=== PATIENT | male | born 1960 | race Caucasian/White ===

== ENCOUNTER 2019-06-17 09:29 | Observation (INO) ==
[2019-06-17] MEDS ORDERED: ASPIRIN 81 MG CHEW PO STA (09:47)
[2019-06-17 10:05] LABS: Basophils # (auto) 0.02 K/uL (0-0.2); Basophils % (auto) 0.4 %; Eosinophils # (auto) 0.03 K/uL (0-0.5); Eosinophils % (auto) 0.7 %; Hematocrit (blood only) 40.5 % (42-52); Hemoglobin 13.7 g/dL (14.0-18.0); Immature Granulocytes # (auto) 0.01 K/uL (0.00-0.02); Immature Granulocytes % (auto) 0.2 %; Lymphocytes # (auto) 1.17 K/uL (1.2-3.4); Lymphocytes % (auto) 25.9 %; Mean Corpuscular Hemoglobin 29.4 pg (25-34); Mean Corpuscular Hgb Conc 33.8 g/dL (32-36); Mean Corpuscular Volume 86.9 fL (80-100); Mean Platelet Volume 9.6 fL (7.4-10.4); Monocytes # (auto) 0.94 K/uL (0.11-0.59); Monocytes % (auto) 20.8 %; Neutrophils # (auto) 2.34 K/uL (1.4-6.5); Platelet Count 200 K/uL (130-400); RDW Coefficient of Variation 13.5 % (11.5-14.5); Red Blood Count 4.66 M/uL (4.7-6.1); White Blood Count 4.51 K/uL (4.8-10.8)
[2019-06-17] MEDS ORDERED: SODIUM CHLORIDE 0.9% 1000ML 1,000 ML IV ONE (10:05)
[2019-06-17] MEDS ORDERED: ONDANSETRON INJ 2 MG/ML 2 ML VIAL IV STA (10:05)
--- NOTE | 2019-06-17 10:05 | XRay Report ---
XR chest 1V portable HISTORY: 59 years-old Male Chest Pain acute atypical chest pain COMPARISON: None available TECHNIQUE: Portable AP view of the chest FINDINGS: Cardiac silhouette is enlarged, unchanged. Minimal bibasilar opacities suggest atelectasis. No pneumo thorax, pleural effusion or overt pulmonary edema. Mild right hemidiaphragmatic elevation. Degenerati ve changes of the shoulders and spine. IMPRESSION: Cardiomegaly without acute process. The above report was generated using voice recognition software. It may contain grammatical, syntax o r spelling errors. Electronically signed by: Sheldon Garcia M.D. 06/17/2019 10:03 AM
[2019-06-17 10:20] LABS: Alanine Aminotransferase 27 U/L (12-78); Albumin Level 3.6 gm/dl (3.4-5.0); Aspartate Aminotransferase 21 U/L (15-37); BUN Creatinine Ratio 13.6 (10-20); Blood Urea Nitrogen 15 mg/dl (7-18); Calcium 8.4 mg/dl (8.5-10.1); Carbon Dioxide 23 mmol/L (21-32); Chloride 108 mmol/L (98-107); Creatinine Clr Calc Pharmacy 98.1 ml/min; Est GFR (African American) 87.8; Est GFR (Non-African American) 75.8; Glucose 115 mg/dl (70-99); Lipase 109 U/L (73-393); Potassium 3.4 mmol/L (3.5-5.1); Sodium 136 mmol/L (136-145)
[2019-06-17 10:25] LABS: Alkaline Phosphatase 94 U/L (45-117); Bilirubin,Total 0.6 mg/dl (0.2-1); Globulin 3.7 gm/dl (2.5-4.0); Total Protein 7.3 gm/dl (6.4-8.2); Troponin I < 0.015 ng/ml (0-0.045)
[2019-06-17] MEDS ORDERED: OPTIRAY 320 125ml IV PRN (10:54)
--- NOTE | 2019-06-17 11:10 | CT Scan Report ---
CT angio chest PE protocol CLINICAL HISTORY: 59 years-old Male presenting with atypical chest pain, left-sided neck pain, clinic al concern for pulmonary embolus. TECHNIQUE: Multidetector CT angiography of the chest was performed after administration of intravenou s contrast. 3-D volumetric and/or maximum intensity projection (MIP) images were subsequently reconst ructed for review. IV contrast: 120 mL of Optiray 320. One or more dose lowering techniques were used consistent with the principles of ALARA (as low as reasonably achievable), including automatic expos ure control, mA or kV adjustment to individual patient size, and/or use of iterative reconstruction. COMPARISON: Chest x-ray performed earlier the same day. CT DOSE (mGy.cm): The estimated cumulative dose is 553.72 mGy.cm. FINDINGS: Castings Drafter topogram: Unremarkable. Pulmonary vasculature: The study is suboptimal for the assessment of the pulmonary vascular tree secondary to respiratory mo tion artifact. No filling defect within the pulmonary arteries to suggest embolus. Main pulmonary art jammie is not enlarged. No flattening of the interventricular septum. No intracardiac filling defect. No reflux of contrast into the hepatic veins. Remaining chest: Soft tissues: Normal thyroid and thoracic inlet. Gynecomastia. No axillary, supraclavicular, mediasti nal, or hilar lymphadenopathy. Normal aorta. Multichamber enlargement of the heart. No pericardial or pleural effusion. Upper abdomen normal. Lungs and airways: No pneumothorax. Central airways patent. Pulmonary arteries are not significantly enlarged relative to adjacent bronchi. No interlobular septal thickening. Minimal dependent changes l ikely atelectasis. Musculoskeletal: Degenerative changes of the spine. IMPRESSION: 1. No evidence of pulmonary embolus. No acute intrathoracic pathology. 2. Cardiomegaly. No evidence of volume overload or congestive change. Electronically signed by: Ian Whitaker M.D. 06/17/2019 11:09 AM
[2019-06-17] MEDS ORDERED: DiphenhydrAMINE HCL 50 MG/ML VIAL IV STA (11:28)
[2019-06-17] MEDS ORDERED: METOCLOPRAMIDE HCL INJ 5 MG/ML 2 ML VIAL IV ONE (11:28)
[2019-06-17] MEDS ORDERED: POTASSIUM CHLORIDE 20 MEQ TABCR PO STA (12:49)
[2019-06-17 13:04] LABS: Lyme Ab IgG w/WB Rflx Negative (Negative)
[2019-06-17 13:05] LABS: Lyme Ab IgM w/WB Rflx Negative (Negative)
--- NOTE | 2019-06-17 13:06 | History & Physical Report ---
Date of Service June 17, 2019 Assessment & Plan (1) Viral syndrome: (2) Weakness: This is a 59-year-old male who has significant past medical history of HTN, HLD, depression with anxiety, osteoarthritis who presents to ED secondary to URI symptoms x4 days, overall ill feeling and left-sided chest pain. In ED initial EKG revealed normal sinus rhythm, no ST or T wave changes. Initial troponin WNL. CBC relatively unremarkable except for mildly diminished H&H 13.7 and 40.5, WBC 4.51, platelet 200, monocytes high at 0.94. elevated ESR 29/CRP0.80, K 3.4; otherwise CMP relatively unremarkable. CXR and CTA Chest negative for PE, consolidation, congestive changes, + cardiomegaly. He received ASA 325 while in ED along with IV reglan and benadryl due to nausea. admit to PCU influenza PCR pending supportive care with xopenex neb tx, incentive spirometry, tessalon perles prn once ACS ruled out can implement NSAIDS (3) Chest pain: ? if 2/2 to viral syndrome, pleuritis, chostochondritis vs ACS pt with hx of HTN, HLD initial trop negative, ECG no ST t wave changes trend trop x 2, repeat ecg echo (4) Hypokalemia: K 3.4 replete repeat in a.m. (5) HTN (hypertension): BP controlled, continue lisnopril monitor (6) HLD (hyperlipidemia): continue statin fasting lipid panel in a.m. (7) Depression: continue escitalopram (8) DVT prophylaxis: SCD/TEDS FULL CODE Disposition: admit to PCU under observation, pending further work up [facility] Pt was seen and examined in collaboration with Dr. Dumont, please see addendum History of Present Illness Chief Complaint: URI sx x 4 days; L sided chest pain Primary Care Provider: Dr. Savage - Family medicine [facility] This is a 59-year-old male who has significant past medical history of HTN, HLD, depression with anxiety, osteoarthritis who presents to ED secondary to URI symptoms x4 days, overall ill feeling and left-sided chest pain. He is from [place], [place] and is up in the area for work. is at bedside. On Saturday he developed URI-like symptoms including sinus congestion, cough, ill feeling. Symptoms progressed to shortness breath with exertion, wheezing, chills, sweats, left-sided chest pain that radiates left neck. Yesterday when working he had to walk up a hill had to stop 3 times secondary to feeling short of breath. He has never felt like this in the past, except when diagnosed with pneumonia approximately 1 year ago. Cough is productive with purulent sputum, chest pain worse with coughing and deep breathing. "I have to hold my chest when I cough because it hurts." He denies documented fever, lightheadedness, shortness breath at rest, hemoptysis, emesis, abdominal pain, diarrhea, dysuria, increased urgency frequency with urination, melena, hematochezia. Patient came by EMS and did receive nebulizer treatment and ambulance. This made him feel very nauseous. at bedside states daughter has been dealing with GI virus that also had dizziness. No other sick contacts. He did not get his flu vaccine. Denies prior hx of CAD or FH of CAD. Prior to URI illness he denies having SOB with exertion or chest pain. Chest pain is constant, waxes and wanes in severity, worse with deep breathing and exertion, radiates to L neck, has been using OTC clarinex for, "skin issue," but hasn't been working. Appetite poor past 2-3 days. In ED initial EKG revealed normal sinus rhythm, no ST or T wave changes. Initial troponin WNL. CBC relatively unremarkable except for mildly diminished H&H 13.7 and 40.5, WBC 4.51, platelet 200, monocytes high at 0.94. elevated ESR 29/CRP0.80, K 3.4; otherwise CMP relatively unremarkable. CXR and CTA Chest negative for PE, consolidation, congestive changes, + cardiomegaly. He received ASA 325 while in ED along with IV reglan and benadryl due to nausea. Allergies Allergy/AdvReac Type Severity Reaction Status Date / Time No Known Allergies Allergy Unverified 06/17/19 10:28 Home Medications Home Medications Medication Instructions Recorded Confirmed Type atorvastatin 10 mg PO DAILY 06/17/19 06/17/19 History escitalopram oxalate [Lexapro] 20 mg PO DAILY 06/17/19 06/17/19 History lisinopril 10 mg PO DAILY 06/17/19 06/17/19 History loratadine-pseudoephedrine 1 tab PO Q12H 06/17/19 06/17/19 History [Claritin-D 12 Hour] meloxicam 15 mg PO DAILY 06/17/19 06/17/19 History Past Med/Surg History Medical History HLD (hyperlipidemia) HTN (hypertension) Surgical History History of shoulder surgery R shoulder Family History Other Hypertension No significant family history Social History (Updated 06/17/19 @ 12:54 by Mayda Benjamin PA-C) Preferred Language: [place] Communication Ability: Effective 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 Beliefs That Will Affect Care: None Current Living Situation: Spouse current occupational status: employed Other Information That Helps Us Care for You: No Feels Safe at Home: Yes Safety Concerns: Feels Safe At This Time Smoking Status: Never smoker Hx Alcohol Use: Yes Alcohol type: beer Alcohol Intake Frequency: Rarely Hx Substance Use: No Review of Systems Review of Systems: All systems reviewed & are unremarkable except as noted in HPI & below Physical Exam Physical Exam: Constitutional: Ill appearing, Male, ashen color, vitals as above, NAD, sitting up in bed, answers questions approp, flat affect, Head: Normocephalic, Atraumatic Eyes: PERRL, conjunctivae normal, anicteric sclerae ENMT: external ear and nose normal, oropharynx normal Neck: trachea midline, no thyromegaly normal visual inspection Respiratory: normal respiratory effort, lungs clear to auscultation, with expiratory wheeze b/l no rales, rhonchi. Normal insp/exp effort, no accessory muscle use saturing well on room air, L sided chest pain with deep inhalation Cardiovascular: RRR, no murmur, no edema Vessels: no JVD or carotid bruit Chest: normal inspection of chest Abdomen: normal bowel sounds, soft, nontender, no hepatosplenomegaly Musculoskeletal: no cyanosis or clubbing, extremities motor strength 5/5 Skin: no rashes, warm and dry normal turgor Neurologic: PERRL, EOMI, accommodation nl, no face palsy, no dysarthria CN's II-XI intact bilaterally and moves all extremities Psychiatric: A+Ox3, euthymic affect Lymphatic: no cervical or axillary lymphadenopathy : deferred Results & Data Vital Signs (Past 12 Hours) Vital Signs Temp Pulse Pulse Resp BP BP Pulse Ox 06/17/19 12:00 56 L 20 140/90 100 06/17/19 11:00 100 06/17/19 10:12 60 16 129/89 97 06/17/19 09:38 36.5 C 69 16 151/98 H 97 Laboratory Results Short CBC 06/17/19 06/17/19 Range/Units 09:53 09:53 WBC 4.51 L (4.8-10.8) K/uL Hgb 13.7 L (14.0-18.0) g/dL Hct 40.5 L (42-52) % Plt Count 200 (130-400) K/uL Creatinine 1.08 (0.6-1.4) mg/dl BMP 06/17/19 09:53 Sodium 136 Potassium 3.4 L Chloride 108 H Carbon Dioxide 23 BUN 15 Creatinine 1.08 Glucose 115 H Calcium 8.4 L Cardiac Enzymes 06/17/19 Range/Units 09:53 Troponin I < 0.015 (0-0.045) ng/ml Liver Function 06/17/19 Range/Units 09:53 Total Bilirubin 0.6 (0.2-1) mg/dl AST 21 (15-37) U/L ALT 27 (12-78) U/L Alkaline Phosphatase 94 (45-117) U/L Albumin 3.6 (3.4-5.0) gm/dl Diagnostic Findings CXR: IMPRESSION: Cardiomegaly without acute process. Chest CTA: IMPRESSION: 1. No evidence of pulmonary embolus. No acute intrathoracic pathology. 2. Cardiomegaly. No evidence of volume overload or congestive change. Medications Administered Ioversol (Optiray 320 125ml) 120 ml IV ONCE PRN PRN Reason: Interaction Checking Stop: 06/21/19 10:53 Last Admin: 06/17/19 10:54 Dose: 120 ml Documented by: [id number] Discontinued Medications Aspirin (Aspirin Chew) 324 mg PO NOW STA Stop: 06/17/19 09:48 Last Admin: 06/17/19 09:52 Dose: 324 mg Documented by: [id number] Diphenhydramine HCl (Benadryl) 25 mg IV NOW STA Stop: 06/17/19 11:29 Last Admin: 06/17/19 12:00 Dose: 25 mg Documented by: [id number] Sodium Chloride (Nss 1000ml) 1,000 mls @ 999 mls/hr IV .Q1H1M ONE Stop: 06/17/19 11:05 Last Infusion: 06/17/19 11:15 Dose: 0 mls/hr Documented by: [id number] Admin: 06/17/19 10:13 Dose: 999 mls/hr Documented by: [id number] Metoclopramide HCl (Reglan) 5 mg IV ONE ONE Stop: 06/17/19 11:29 Last Admin: 06/17/19 12:03 Dose: 5 mg Documented by: [id number] Ondansetron HCl (Zofran) 4 mg IV NOW STA Stop: 06/17/19 10:06 Last Admin: 06/17/19 10:13 Dose: 4 mg Documented by: [id number] ECG Rate (beats per minute): 65 Rhythm: normal sinus Code Status & VTE Plan Code Status Full Code VTE Prophylaxis Plan VTE Prophylaxis will be ordered: Yes Supervising Physician Co-Signing Physician Notes I have seen and examined the patient and have discussed the case with the provider above. I agree with the assessment and plan as stated with the following exceptions. 59 yo M with acute chest pain in the setting of a respiratory illness for the past few days. Although symptoms began with cough and congestion, he then developed pleurisy in addition to a constant chest pain on the left anterior chest wall with radiation to the neck while at rest. There were no triggers for the chest pain except when he became nauseous in response to the neb treatment today and vomited. After some antiemetics in the ER, he states the pain calmed down and he is feeling better--but the chest pain is still there. 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 He does report a h/o costochondritis in the past, and used Ibuprofen. He took some of this over the weekend, also without improvement. The chest wall is not tender to palpation. His vitals are normal, and he appears less pale than described in the ER. He is mentating normally. Heart exam reveals a normal S1/2 without murmurs, he had no pedal edema and appears euvolemic. His lungs were initially wheezy until he coughed a couple of times and then he was moving air well and there were no adventitial sounds present. He has clear fluid in his R middle ear and the left ear is clear. There is no retraction of tympanic membranes. Oropharynx is normal, no head/neck LAD, no sinus TTP. Overall this appears to be chest pain consistent with pleurisy, costochondritis or musculoskeletal chest pain. Agree with NSAIDs. Echo in setting of ongoing chest pain despite normal troponin. At the time of this writing two troponin enzymes were negative and EKG was without evidence of acute ischemia. Ongoing pain should be treated with supportive care. Consult cardiology with risk factors for CAD. DO Tim (1) Chest pain Chest pain type: unspecified Qualified Code(s): R07.9 - Chest pain, unspecified
[2019-06-17] MEDS ORDERED: ONDANSETRON INJ 2 MG/ML 2 ML VIAL IV PRN (14:06)
[2019-06-17] MEDS ORDERED: BENZONATATE 100 MG CAPSULE PO PRN (14:06)
[2019-06-17] MEDS ORDERED: MAGNESIUM HYDROXIDE SUSP 30 ML UDC PO PRN (14:06)
[2019-06-17] MEDS ORDERED: ACETAMINOPHEN 325 MG TAB PO PRN (14:06)
[2019-06-17] MEDS ORDERED: SODIUM CHLORIDE 0.9% 1000ML 1,000 ML IV SCH (14:06)
[2019-06-17] MEDS ORDERED: POLYETHYLENE (MIRALAX) 17 GM PACK PO PRN (14:06)
[2019-06-17] MEDS ORDERED: ALUMINUM/MAGNESIUM SUSP 30 ML UDC PO PRN (14:06)
[2019-06-17] MEDS ORDERED: LEVALBUTEROL HCL 0.63 MG/3 ML NEB NEB SCH (14:06)
[2019-06-17] MEDS ORDERED: LEVALBUTEROL HCL 0.63 MG/3 ML NEB NEB PRN (14:39)
[2019-06-17 15:23] LABS: Influenza A virus by PCR Neg for Influ A (Neg); Influenza B virus by PCR Neg for Influ B (Neg)
--- NOTE | 2019-06-17 15:47 | Emergency Department Note ---
Entered by Lucia Garnett acting as a scribe for History of Present Illness General Chief complaint: Illness Stated complaint: chest pain Time Seen by Provider: 06/17/19 09:33 Source: patient History of Present Illness Onset (ago): minute(s) (prior to arrival) Location: chest Severity: similar to prior episodes (pneumonia) Pain Consistency: + other (episode) Maximum Pain Intensity: 6 Current Pain Intensity: 6 Quality: + other (illness) Relieved By: + medication (Albuterol) Associated symptoms: + denies other symptoms (leg swelling), + chest pain, + cough (productive), + headaches, + nausea/vomiting, + shortness of breath and + other (neck pain, numbness) The patient is a 59 year old male who presents to the Emergency Room with complaints of an episode of an illness starting prior to arrival. 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 He states that he suddenly started to become short of breath. He reports that he started then having chest pain with breathing in and it radiated up into his neck. He states that he then became dizzy and had blurred vision. He reports that he called 911. He states that while waiting he started to get a hea dache, numbness behind his ears, numbness around his lips, numbness in his hands, and numbness in his feet. The patient states that when EMS arrived, they gave him an Albuterol treatment. He reports that this helped his breathing, but it made him nauseous and vomit. The patient notes that his chest pain is gone, but he still has the left sided neck pain. He currently rates his pain as a 6/10 in severity. The patient states that this feels similar to when he had pneumonia 2 months ago, but notes that he never had neck pain with it. The patient complains of a productive cough. The patient denies leg swelling, a family history of cardiac issues, a cardiac history, and being a smoker. Home Medications Home Medications Medication Instructions Recorded Confirmed Type atorvastatin 10 mg PO DAILY 06/17/19 06/17/19 History escitalopram oxalate [Lexapro] 20 mg PO DAILY 06/17/19 06/17/19 History lisinopril 10 mg PO DAILY 06/17/19 06/17/19 History loratadine-pseudoephedrine 1 tab PO Q12H 06/17/19 06/17/19 History [Claritin-D 12 Hour] meloxicam 15 mg PO DAILY 06/17/19 06/17/19 History Allergies Allergy/AdvReac Type Severity Reaction Status Date / Time No Known Allergies Allergy Unverified 06/17/19 10:28 Past Med/Surg History Medical History HLD (hyperlipidemia) HTN (hypertension) Surgical History History of shoulder surgery R shoulder Family History Other Hypertension No significant family history Social History (Updated 06/17/19 @ 12:54 by Mayda Benjamin PA-C) Preferred Language: Hebrew Communication Ability: Effective Type Mapper Required: No Beliefs That Will Affect Care: None Current Living Situation: Spouse current occupational status: employed Other Information That Helps Us Care for You: No Feels Safe at Home: Yes Safety Concerns: Feels Safe At This Time Smoking Status: Never smoker Hx Alcohol Use: Yes Alcohol type: beer Alcohol Intake Frequency: Rarely Hx Substance Use: No Review of Systems See HPI for pertinent positives & negatives. and A total of 10 systems reviewed and were otherwise negative Physical Exam Vital Signs Vital Signs - 24 hr 06/17/19 09:38 06/17/19 10:12 06/17/19 11:00 Temperature 36.5 C Temperature Source Oral Pulse Rate 69 Pulse Rate [Apical] 60 Pulse Rhythm [Apical] Respiratory Rate 16 16 Respiratory Effort / Characteristics Respiratory Depth Blood Pressure 151/98 H Blood Pressure [Right Arm] 129/89 Blood Pressure Mean 115 Blood Pressure Mean [Right Arm] 102 Blood Pressure Position [Right Arm] Pulse Oximetry 97 97 100 Oxygen Delivery Method Room Air Room Air Room Air Sepsis Recent Fever Within 48 Hours No Sepsis Action Taken by Nursing No Action Required 06/17/19 12:00 Temperature Temperature Source Pulse Rate Pulse Rate [Apical] 56 L Pulse Rhythm [Apical] Regular Respiratory Rate 20 Respiratory Effort / Characteristics Non-Labored Spontaneous Respiratory Depth Normal Blood Pressure Blood Pressure [Right Arm] 140/90 Blood Pressure Mean Blood Pressure Mean [Right Arm] 106 Blood Pressure Position [Right Arm] Lying Pulse Oximetry 100 Oxygen Delivery Method Room Air Sepsis Recent Fever Within 48 Hours Sepsis Action Taken by Nursing GENERAL: Awake, alert, uncomfortable appearing, in no distress HENT: Normocephalic, atraumatic. EYES: Normal conjunctiva. Sclera non-icteric. NECK: Supple. No nuchal rigidity. Slightly reproducible left lower neck tender ness. No masses. RESPIRATORY: Clear to auscultation. No wheezes. Normal respiratory effort. CARDIAC: Normal rate. Normal rhythm. Extremities warm and well perfused. GI: Soft, non-distended. No tenderness to palpation. No rebound or guarding. No masses. RECTAL: Deferred. MUSCULOSKELETAL: Atraumatic. Chest examination reveals no tenderness. LOWER EXTREMITIES: Calves are equal size bilaterally and non-tender. No edema NEURO: Normal sensorium. No sensory or motor deficits noted. No facial droop. SKIN: Warm and dry. No rash or jaundice noted. Course Course 0938: The patient was evaluated in room A3. A complete history and physical exam was performed. 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 1120: I reevaluated the patient and updated him on his test results at this time. I discussed the treatment plan with him. He verbally agrees and understands. 1134: I discussed the patient's case with Brianna Ho PA-C - [facility] Hospitalist. She will evaluate the patient for further management under Dr. Dumont's service. Administered Medications Discontinued Medications Aspirin (Aspirin Chew) 324 mg PO NOW STA Stop: 06/17/19 09:48 Last Admin: 06/17/19 09:52 Dose: 324 mg Documented by: [id number] Diphenhydramine HCl (Benadryl) 25 mg IV NOW STA Stop: 06/17/19 11:29 Last Admin: 06/17/19 12:00 Dose: 25 mg Documented by: [id number] Sodium Chloride (Nss 1000ml) 1,000 mls @ 999 mls/hr IV .Q1H1M ONE Stop: 06/17/19 11:05 Last Infusion: 06/17/19 11:15 Dose: 0 mls/hr Documented by: [id number] Admin: 06/17/19 10:13 Dose: 999 mls/hr Documented by: [id number] Ioversol (Optiray 320 125ml) 120 ml IV ONCE PRN PRN Reason: Interaction Checking Stop: 06/21/19 10:53 Last Admin: 06/17/19 10:54 Dose: 120 ml Documented by: [id number] Levalbuterol HCl (Xopenex 0.63 Mg/3 Ml Neb) 0.63 mg NEB Q6R SASHA Stop: 07/17/19 14:05 Last Admin: 06/17/19 15:23 Dose: Not Given Documented by: [id number] Metoclopramide HCl (Reglan) 5 mg IV ONE ONE Stop: 06/17/19 11:29 Last Admin: 06/17/19 12:03 Dose: 5 mg Documented by: [id number] Ondansetron HCl (Zofran) 4 mg IV NOW STA Stop: 06/17/19 10:06 Last Admin: 06/17/19 10:13 Dose: 4 mg Documented by: [id number] Potassium Chloride (Klor-Con M20) 40 meq PO NOW STA Stop: 06/17/19 12:50 Last Admin: 06/17/19 13:18 Dose: 40 meq Documented by: [id number] Medical Decision Making Differential Diagnosis Differential diagnoses includes but is not limited to acute coronary syndrome, myocardial infarction, pericarditis, pulmonary embolus, aortic dissection, pneumonia, pneumothorax, musculoskeletal, shingles, esophageal. Medical Records Attestation: I reviewed the patient's medical records. Home Medications Current Medication List: was personally reviewed by me Laboratory Data Attestation: I reviewed the patient's lab results. Result diagrams: 06/17/19 09:53 06/17/19 09:53 Lab Results 06/17/19 06/17/19 06/17/19 Range/Units 09:53 09:53 09:53 WBC 4.51 L (4.8-10.8) K/uL RBC 4.66 L (4.7-6.1) M/uL Hgb 13.7 L (14.0-18.0) g/dL Hct 40.5 L (42-52) % MCV 86.9 (80-100) fL MCH 29.4 (25-34) pg MCHC 33.8 (32-36) g/dL RDW Std Deviation 43.0 (36.4-46.3) fL RDW Coeff of Anthony 13.5 (11.5-14.5) % Plt Count 200 (130-400) K/uL MPV 9.6 (7.4-10.4) fL Immature Gran % (Auto) 0.2 % Neut % (Auto) 52.0 % Lymph % (Auto) 25.9 % [place] % (Auto) 20.8 % Eos % (Auto) 0.7 % Baso % (Auto) 0.4 % Immature Gran # (Auto) 0.01 (0.00-0.02) K/uL Neut # (Auto) 2.34 (1.4-6.5) K/uL Lymph # (Auto) 1.17 L (1.2-3.4) K/uL [place] # (Auto) 0.94 H (0.11-0.59) K/uL Eos # (Auto) 0.03 (0-0.5) K/uL Baso # (Auto) 0.02 (0-0.2) K/uL ESR 29 H (0-14) mm/hr Sodium 136 (136-145) mmol/L Potassium 3.4 L (3.5-5.1) mmol/L Chloride 108 H (98-107) mmol/L Carbon Dioxide 23 (21-32) mmol/L Anion Gap 5.0 (3-11) BUN 15 (7-18) mg/dl Creatinine 1.08 (0.6-1.4) mg/dl Est Cr Clr Drug Dosing 98.1 ml/min Est GFR ( Amer) 87.8 Est GFR (Non-Af Amer) 75.8 BUN/Creatinine Ratio 13.6 (10-20) Glucose 115 H (70-99) mg/dl Calcium 8.4 L (8.5-10.1) mg/dl Total Bilirubin 0.6 (0.2-1) mg/dl AST 21 (15-37) U/L ALT 27 (12-78) U/L Alkaline Phosphatase 94 (45-117) U/L Troponin I < 0.015 (0-0.045) ng/ml C-Reactive Protein (0-0.29) mg/dl Total Protein 7.3 (6.4-8.2) gm/dl Albumin 3.6 (3.4-5.0) gm/dl Globulin 3.7 (2.5-4.0) gm/dl Albumin/Globulin Ratio 1.0 (0.9-2) Lipase 109 (73-393) U/L Lyme Disease IgG Ab (Negative) Lyme Disease IgM Ab (Negative) Hepatitis C Ab Screen (Neg) Influenza Type A (PCR) (Neg) Influenza Type B (PCR) (Neg) 06/17/19 06/17/19 06/17/19 Range/Units 09:53 12:05 12:05 WBC (4.8-10.8) K/uL RBC (4.7-6.1) M/uL Hgb (14.0-18.0) g/dL Hct (42-52) % MCV (80-100) fL MCH (25-34) pg MCHC (32-36) g/dL RDW Std Deviation (36.4-46.3) fL RDW Coeff of Anthony (11.5-14.5) % Plt Count (130-400) K/uL MPV (7.4-10.4) fL Immature Gran % (Auto) % Neut % (Auto) % Lymph % (Auto) % [place] % (Auto) % Eos % (Auto) % Baso % (Auto) % Immature Gran # (Auto) (0.00-0.02) K/uL Neut # (Auto) (1.4-6.5) K/uL Lymph # (Auto) (1.2-3.4) K/uL [place] # (Auto) (0.11-0.59) K/uL Eos # (Auto) (0-0.5) K/uL Baso # (Auto) (0-0.2) K/uL ESR (0-14) mm/hr Sodium (136-145) mmol/L Potassium (3.5-5.1) mmol/L Chloride (98-107) mmol/L Carbon Dioxide (21-32) mmol/L Anion Gap (3-11) BUN (7-18) mg/dl Creatinine (0.6-1.4) mg/dl Est Cr Clr Drug Dosing ml/min Est GFR ( Amer) Est GFR (Non-Af Amer) BUN/Creatinine Ratio (10-20) Glucose (70-99) mg/dl Calcium (8.5-10.1) mg/dl Total Bilirubin (0.2-1) mg/dl AST (15-37) U/L ALT (12-78) U/L Alkaline Phosphatase (45-117) U/L Troponin I (0-0.045) ng/ml C-Reactive Protein 0.80 H (0-0.29) mg/dl Total Protein (6.4-8.2) gm/dl Albumin (3.4-5.0) gm/dl Globulin (2.5-4.0) gm/dl Albumin/Globulin Ratio (0.9-2) Lipase (73-393) U/L Lyme Disease IgG Ab Negative (Negative) Lyme Disease IgM Ab Negative (Negative) Hepatitis C Ab Screen Neg (Neg) Influenza Type A (PCR) (Neg) Influenza Type B (PCR) (Neg) 06/17/19 Range/Units 12:35 WBC (4.8-10.8) K/uL RBC (4.7-6.1) M/uL Hgb (14.0-18.0) g/dL Hct (42-52) % MCV (80-100) fL MCH (25-34) pg MCHC (32-36) g/dL RDW Std Deviation (36.4-46.3) fL RDW Coeff of Anthony (11.5-14.5) % Plt Count (130-400) K/uL MPV (7.4-10.4) fL Immature Gran % (Auto) % Neut % (Auto) % Lymph % (Auto) % [place] % (Auto) % Eos % (Auto) % Baso % (Auto) % Immature Gran # (Auto) (0.00-0.02) K/uL Neut # (Auto) (1.4-6.5) K/uL Lymph # (Auto) (1.2-3.4) K/uL [place] # (Auto) (0.11-0.59) K/uL Eos # (Auto) (0-0.5) K/uL Baso # (Auto) (0-0.2) K/uL ESR (0-14) mm/hr Sodium (136-145) mmol/L Potassium (3.5-5.1) mmol/L Chloride (98-107) mmol/L Carbon Dioxide (21-32) mmol/L Anion Gap (3-11) BUN (7-18) mg/dl Creatinine (0.6-1.4) mg/dl Est Cr Clr Drug Dosing ml/min Est GFR ( Amer) Est GFR (Non-Af Amer) BUN/Creatinine Ratio (10-20) Glucose (70-99) mg/dl Calcium (8.5-10.1) mg/dl Total Bilirubin (0.2-1) mg/dl AST (15-37) U/L ALT (12-78) U/L Alkaline Phosphatase (45-117) U/L Troponin I (0-0.045) ng/ml C-Reactive Protein (0-0.29) mg/dl Total Protein (6.4-8.2) gm/dl Albumin (3.4-5.0) gm/dl Globulin (2.5-4.0) gm/dl Albumin/Globulin Ratio (0.9-2) Lipase (73-393) U/L Lyme Disease IgG Ab (Negative) Lyme Disease IgM Ab (Negative) Hepatitis C Ab Screen (Neg) Influenza Type A (PCR) Neg for Influ A (Neg) Influenza Type B (PCR) Neg for Influ B (Neg) Imaging Data Radiologist's Impression: Radiology results as stated below per my review and the radiologist's interpretation: XR chest 1V portable HISTORY: 59 years-old Male Chest Pain acute atypical chest pain COMPARISON: None available TECHNIQUE: Portable AP view of the chest FINDINGS: Cardiac silhouette is enlarged, unchanged. Minimal bibasilar opacities suggest atelectasis. No pneumothorax, pleural effusion or overt pulmonary edema. Mild right hemidiaphragmatic elevation. Degenerative changes of the shoulders and spine. IMPRESSION: Cardiomegaly without acute process. The above report was generated using voice recognition software. It may contain grammatical, syntax or spelling errors. Electronically signed by: Sheldon Garcia M.D. 06/17/2019 10:[address] angio chest PE protocol CLINICAL HISTORY: 59 years-old Male presenting with atypical chest pain, left- sided neck pain, clinical concern for pulmonary embolus. TECHNIQUE: Multidetector CT angiography of the chest was performed after administration of intravenous contrast. 3-D volumetric and/or maximum intensity projection (MIP) images were subsequently reconstructed for review. IV contrast: 120 mL of Optiray 320. One or more dose lowering techniques were used consistent with the principles of ALARA (as low as reasonably achievable), including automatic exposure control, mA or kV adjustment to individual patient size, and/or use of iterative reconstruction. COMPARISON: Chest x-ray performed earlier the same day. CT DOSE (mGy.cm): The estimated cumulative dose is 553.72 mGy.cm. 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 Pulmonary vasculature: The study is suboptimal for the assessment of the pulmonary vascular tree secondary to respiratory motion artifact. No filling defect within the pulmonary arteries to suggest embolus. Main pulmonary artery is not enlarged. No flattening of the interventricular septum. No intracardiac filling defect. No reflux of contrast into the hepatic veins. Remaining chest: Soft tissues: Normal thyroid and thoracic inlet. Gynecomastia. No axillary, supraclavicular, mediastinal, or hilar lymphadenopathy. Normal aorta. Multichamber enlargement of the heart. No pericardial or pleural effusion. Upper abdomen normal. Lungs and airways: No pneumothorax. Central airways patent. Pulmonary arteries are not significantly enlarged relative to adjacent bronchi. No interlobular septal thickening. Minimal dependent changes likely atelectasis. Musculoskeletal: Degenerative changes of the spine. IMPRESSION: 1. No evidence of pulmonary embolus. No acute intrathoracic pathology. 2. Cardiomegaly. No evidence of volume overload or congestive change. Electronically signed by: Ian Whitaker M.D. 06/17/2019 11:09 AM ECG Data Attestation: I personally reviewed and interpreted this ECG as follows: Indication: + chest pain Rate (beats per minute): 65 Rhythm: + normal sinus ECG Intervals/blocks: + Normal QRS and + Normal QT-c ECG [place]: + Normal ECG ST segments: no ST elevation ECG Findings: no PVCs Blood Pressure Blood Pressure Findings: Elevated blood pressure Blood Pressure Disposition: Referred to patients primary care provider MDM Narrative Patient is a 59-year-old gentleman presenting via ambulance today with a complaint of chest pain. History of hypertension hyperlipidemia. States he has been feeling a little bit short of breath and on the weather for the past 2 to 3 days but this morning sparing his pain in his chest rating to his left neck. Denies abdominal symptoms. Endorses some nausea and feeling a bit dizzy as well. No trauma reported. No abdominal pain. No leg swelling. 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 Patient denies tobacco use or significant family history of cardiac disease. Denies personal cardiac history. Patient does have some slightly reproducible left lower neck pain but not the entire area of pain. Patient reports some mild discomfort across the chest right now. No immediate EKG changes are noted. CT of the chest was complete exclude dissection or PE. Chest x-ray complete without evidence of pneumonia or pneumothorax. Benign abdomen. Basic labs are sent without evidence of hepatitis or pancreatitis. Initial troponin is negative. Patient relays nausea and some dizziness. Given aspirin and fluid bolus here. No significant leukocytosis or significant anemia noted. No evidence of significant kidney dysfunction. Negative troponin. Patient does relay that he has been feeling weak and having some chills over the last several days. Does report some tick bites recently. Given the patient still feeling quite unwell did try some Benadryl and Reglan to see if this would help with his nausea. Discussed with him my recommendation that the patient further be observed here in the hospital with additional troponins as well as further evaluation of his constellation of syndromes. Lyme testing again is negative. Leukopenia could be suggestive of possible anaplasmosis as well although is not having LFT abnormalities. Will defer to the inpatient team further treatment and management. Patient was in agreemen this plan. [facility] hospitalist was contacted. Impression & Plan Chest pain, Weakness, Nausea & vomiting Discharge Plan Visit Data *Final* Discharge Date/Time: 06/17/19 13:57 Chief Complaint: Illness Stated Complaint: chest pain ED Provider: Mayank Smith Discharge Problem: Chest pain, Weakness, Nausea & vomiting Patient Disposition: Admitted As Inpatient Discharge Instructions Interventions: ED Discharge Assessment Last Done: 06/17/19 13:57 Discharge Problem: Chest pain Qualifiers: Chest pain type: unspecified Qualified Code(s): R07.9 - Chest pain, unspecified Nausea & vomiting Qualifiers: Vomiting type: unspecified Vomiting Intractability: unspecified Qualified Code(s): R11.2 - Nausea with vomiting, unspecified The scribe's documentation has been prepared under my direction and personally reviewed by me in its entirety. I confirm that the note above accurately reflects all work, treatment, procedures, and medical decision making performed by me.
[2019-06-17] MEDS ORDERED: IBUPROFEN 200 MG TAB PO PRN (17:05)
[2019-06-18 07:15] LABS: Basophils # (auto) 0.02 K/uL (0-0.2); Basophils % (auto) 0.4 %; Eosinophils # (auto) 0.12 K/uL (0-0.5); Eosinophils % (auto) 2.4 %; Hematocrit (blood only) 40.1 % (42-52); Hemoglobin 12.8 g/dL (14.0-18.0); Immature Granulocytes # (auto) 0.02 K/uL (0.00-0.02); Immature Granulocytes % (auto) 0.4 %; Lymphocytes # (auto) 1.56 K/uL (1.2-3.4); Lymphocytes % (auto) 31.5 %; Mean Corpuscular Hemoglobin 28.6 pg (25-34); Mean Corpuscular Hgb Conc 31.9 g/dL (32-36); Mean Corpuscular Volume 89.7 fL (80-100); Mean Platelet Volume 10.3 fL (7.4-10.4); Monocytes # (auto) 0.64 K/uL (0.11-0.59); Monocytes % (auto) 12.9 %; Neutrophils % (auto) 52.4 %; Platelet Count 215 K/uL (130-400); RDW Coefficient of Variation 13.8 % (11.5-14.5); RDW Standard Deviation 45.9 fL (36.4-46.3); Red Blood Count 4.47 M/uL (4.7-6.1); White Blood Count 4.96 K/uL (4.8-10.8)
[2019-06-18 07:38] LABS: Estimated Average Glucose 111 mg/dl; Hemoglobin A1C 5.5 % (4.5-5.6)
[2019-06-18 07:57] LABS: BUN Creatinine Ratio 13.6 (10-20); Calcium 8.1 mg/dl (8.5-10.1); Creatinine Clr Calc Pharmacy 90.2 ml/min; Est GFR (African American) 82.3; Potassium 4.4 mmol/L (3.5-5.1)
[2019-06-18] MEDS ORDERED: lisinopriL 10 MG TAB PO SCH (09:00)
[2019-06-18] MEDS ORDERED: ATORVASTATIN 10 MG TAB PO SCH (09:00)
[2019-06-18] MEDS ORDERED: ESCITALOPRAM OXALATE 20 MG TAB PO SCH (09:00)
--- NOTE | 2019-06-18 09:30 | Cardiology Consultation ---
Date of Consultation June 18, 2019 Assessment & Plan (1) Chest pain: Occurring in the setting of upper respiratory tract infection and cough His ischemic work-up was completely unremarkable with cardiac enzymes negative x3, no ischemic EKG changes and normal wall motion on echocardiogram. I do not believe this represents active cardiac ischemia and would recommend treatment of his underlying upper respiratory tract infection There may be an element of pleurisy to his discomfort but given the fact that it is not constant I feel this is less likely Consideration should be given to treating with NSAIDs and acetaminophen Recommend follow-up with PCP after discharge there is no need for cardiac follow-up at this time. Okay to discharge from telemetry or to home from a cardiac standpoint (2) Viral syndrome: History of Present Illness Reason for Consultation: Chest pain Requesting Physician: Dr. Dumont Attending Physician: Dayana Dumont, DO History of Present Illness It was my pleasure to see Mr. Kohler in consultation today June 18, 2019. He is a very pleasant 59-year-old gentleman who is not known to our cardiology practice. He presented to [facility] on 06/17/2019 with complaints of upper respiratory tract infection symptoms for 4 days. He states overall he is been feeling very poorly with flulike symptoms. He states he has been coughing on a regular basis and 2 days ago developed some chest discomfort as well. He describes it as a dull pressure sensation on his left side underneath his left breast. He denies any associated symptoms with the discomfort and states that seems to come and go on its own. There is no correlation with activity or movement and is worsened with coughing. His states that he had a previous similar episode of chest discomfort several years ago in a similar setting when he was dealing with a bout of pneumonia, he was diagnosed with costochondritis at that time. The patient states that this feels very similar to that episode. Allergies Allergy/AdvReac Type Severity Reaction Status Date / Time No Known Allergies Allergy Unverified 06/17/19 10:28 Home Medications Home Medications Medication Instructions Recorded Confirmed Type atorvastatin 10 mg PO DAILY 06/17/19 06/17/19 History escitalopram oxalate [Lexapro] 20 mg PO DAILY 06/17/19 06/17/19 History lisinopril 10 mg PO DAILY 06/17/19 06/17/19 History loratadine-pseudoephedrine 1 tab PO Q12H 06/17/19 06/17/19 History [Claritin-D 12 Hour] meloxicam 15 mg PO DAILY 06/17/19 06/17/19 History Patient History Medical History HLD (hyperlipidemia) HTN (hypertension) Surgical History History of shoulder surgery R shoulder Family History Other Hypertension No significant family history Social History Preferred Language: Urdu Communication Ability: Effective Human Service Specialist Required: No Beliefs That Will Affect Care: None Current Living Situation: Spouse current occupational status: employed Other Information That Helps Us Care for You: No Feels Safe at Home: Yes Safety Concerns: Feels Safe At This Time Smoking Status: Never smoker Hx Alcohol Use: Yes Alcohol type: beer Alcohol Intake Frequency: Rarely Hx Substance Use: No Review of Systems Review of Systems: All systems reviewed & are unremarkable except as noted in HPI & below Physical Exam Physical Exam: Physical Exam: General: Awake, alert and oriented x 3. No acute distress. HEENT: Normocephalic, atraumatic. Pupils equal, round and reactive to light and accommodation. Extraocular muscles are intact. Anicteric sclera. Moist mucous membranes. Neck: No JVD. No bruit. Cardiovascular: Regular. No S-4. Normal S-1 and S-2. No S-3. No murmurs, rubs or gallops. Pulmonary: Clear to auscultation bilaterally. No rales, rhonchi, or wheezing. Abdomen: Bowel sounds x 4, soft. No rebound, guarding or tenderness. No organomegaly. Extremities: No clubbing, cyanosis or edema. +2 pedal pulses bilaterally. Skin: Warm and dry. Results & Data Vital Signs (Past 12 Hours) Vital Signs Temp Pulse Pulse Pulse Resp BP BP 06/18/19 08:00 36.4 C L 56 L 18 134/79 06/18/19 03:35 36.6 C 54 L 18 139/77 06/18/19 00:00 58 L 06/17/19 23:55 36.5 C 59 L 20 130/80 Pulse Ox 06/18/19 08:00 95 06/18/19 03:35 96 06/18/19 00:00 06/17/19 23:55 96 Laboratory Results Laboratory Results - last 24 hr 06/17/19 06/17/19 06/17/19 09:53 09:53 12:05 WBC RBC Hgb Hct MCV MCH MCHC RDW Std Deviation RDW Coeff of Anthony Plt Count MPV Immature Gran % (Auto) Neut % (Auto) Lymph % (Auto) [place] % (Auto) Eos % (Auto) Baso % (Auto) Immature Gran # (Auto) Neut # (Auto) Lymph # (Auto) [place] # (Auto) Eos # (Auto) Baso # (Auto) ESR 29 H Sodium Potassium Chloride Carbon Dioxide Anion Gap BUN Creatinine Est Cr Clr Drug Dosing Est GFR ( Amer) Est GFR (Non-Af Amer) BUN/Creatinine Ratio Glucose Estimat Average Glucose Hemoglobin A1c Calcium Troponin I C-Reactive Protein 0.80 H Triglycerides Cholesterol LDL Cholesterol, Calc VLDL Cholesterol, Calc HDL Cholesterol Cholesterol/HDL Ratio Lyme Disease IgG Ab Negative Lyme Disease IgM Ab Negative Hepatitis C Ab Screen Influenza Type A Ab Influenza Type A (PCR) Influenza Type B Ab Influenza Type B (PCR) 06/17/19 06/17/19 06/17/19 12:05 12:05 12:35 WBC RBC Hgb Hct MCV MCH MCHC RDW Std Deviation RDW Coeff of Anthony Plt Count MPV Immature Gran % (Auto) Neut % (Auto) Lymph % (Auto) [place] % (Auto) Eos % (Auto) Baso % (Auto) Immature Gran # (Auto) Neut # (Auto) Lymph # (Auto) [place] # (Auto) Eos # (Auto) Baso # (Auto) ESR Sodium Potassium Chloride Carbon Dioxide Anion Gap BUN Creatinine Est Cr Clr Drug Dosing Est GFR ( Amer) Est GFR (Non-Af Amer) BUN/Creatinine Ratio Glucose Estimat Average Glucose Hemoglobin A1c Calcium Troponin I C-Reactive Protein Triglycerides Cholesterol LDL Cholesterol, Calc VLDL Cholesterol, Calc HDL Cholesterol Cholesterol/HDL Ratio Lyme Disease IgG Ab Lyme Disease IgM Ab Hepatitis C Ab Screen Neg Influenza Type A Ab Pending Influenza Type A (PCR) Neg for Influ A Influenza Type B Ab Pending Influenza Type B (PCR) Neg for Influ B 06/17/19 06/17/19 06/18/19 16:20 21:00 06:13 WBC 4.96 RBC 4.47 L Hgb 12.8 L Hct 40.1 L MCV 89.7 MCH 28.6 MCHC 31.9 L RDW Std Deviation 45.9 RDW Coeff of Anthony 13.8 Plt Count 215 MPV 10.3 Immature Gran % (Auto) 0.4 Neut % (Auto) 52.4 Lymph % (Auto) 31.5 [place] % (Auto) 12.9 Eos % (Auto) 2.4 Baso % (Auto) 0.4 Immature Gran # (Auto) 0.02 Neut # (Auto) 2.60 Lymph # (Auto) 1.56 [place] # (Auto) 0.64 H Eos # (Auto) 0.12 Baso # (Auto) 0.02 ESR Sodium Potassium Chloride Carbon Dioxide Anion Gap BUN Creatinine Est Cr Clr Drug Dosing Est GFR ( Amer) Est GFR (Non-Af Amer) BUN/Creatinine Ratio Glucose Estimat Average Glucose Hemoglobin A1c Calcium Troponin I < 0.015 < 0.015 C-Reactive Protein Triglycerides Cholesterol LDL Cholesterol, Calc VLDL Cholesterol, Calc HDL Cholesterol Cholesterol/HDL Ratio Lyme Disease IgG Ab Lyme Disease IgM Ab Hepatitis C Ab Screen Influenza Type A Ab Influenza Type A (PCR) Influenza Type B Ab Influenza Type B (PCR) 06/18/19 06/18/19 06:13 06:13 WBC RBC Hgb Hct MCV MCH MCHC RDW Std Deviation RDW Coeff of Anthony Plt Count MPV Immature Gran % (Auto) Neut % (Auto) Lymph % (Auto) [place] % (Auto) Eos % (Auto) Baso % (Auto) Immature Gran # (Auto) Neut # (Auto) Lymph # (Auto) [place] # (Auto) Eos # (Auto) Baso # (Auto) ESR Sodium 139 Potassium 4.4 D Chloride 111 H Carbon Dioxide 26 Anion Gap 2.0 L BUN 16 Creatinine 1.14 Est Cr Clr Drug Dosing 90.2 Est GFR ( Amer) 82.3 Est GFR (Non-Af Amer) 71.0 BUN/Creatinine Ratio 13.6 Glucose 90 Estimat Average Glucose 111 Hemoglobin A1c 5.5 Calcium 8.1 L Troponin I C-Reactive Protein Triglycerides 77 Cholesterol 183 LDL Cholesterol, Calc 136 VLDL Cholesterol, Calc 15 HDL Cholesterol 32 Cholesterol/HDL Ratio 6 Lyme Disease IgG Ab Lyme Disease IgM Ab Hepatitis C Ab Screen Influenza Type A Ab Influenza Type A (PCR) Influenza Type B Ab Influenza Type B (PCR) Medications Administered Current Inpatient Medications Acetaminophen (Tylenol) 650 mg PO Q4H PRN PRN Reason: Pain or Fever Stop: 07/17/19 14:05 Al Hydrox/Mg Hydrox/Simethicone (Maalox) 15 ml PO Q4H PRN PRN Reason: Dyspepsia Stop: 07/17/19 14:05 Atorvastatin Calcium (Lipitor) 10 mg PO DAILY [facility] Stop: 07/18/19 08:59 Last Admin: 06/18/19 08:03 Dose: 10 mg Documented by: Benzonatate (Tessalon Perle) 100 mg PO TID PRN PRN Reason: Cough Stop: 07/17/19 14:05 Escitalopram Oxalate (Lexapro Tab) 20 mg PO DAILY [facility] Stop: 07/18/19 08:59 Last Admin: 06/18/19 08:03 Dose: 20 mg Documented by: Ibuprofen (Advil) 400 mg PO QID PRN PRN Reason: Chest Pain Stop: 07/17/19 17:04 Levalbuterol HCl (Xopenex 0.63 Mg/3 Ml Neb) 0.63 mg NEB Q6R PRN PRN Reason: SOB/wheezing Stop: 07/17/19 14:05 Lisinopril (Zestril) 10 mg PO DAILY [facility] Stop: 07/18/19 08:59 Last Admin: 06/18/19 08:03 Dose: 10 mg Documented by: Magnesium Hydroxide (Milk Of Magnesia) 30 ml PO Q12H PRN PRN Reason: Constipation Stop: 07/17/19 14:05 Ondansetron HCl (Zofran) 4 mg IV Q6H PRN PRN Reason: Nausea Stop: 07/17/19 14:05 Polyethylene Glycol (Miralax Powder Packet) 17 gm PO DAILY PRN PRN Reason: Constipation Stop: 07/17/19 14:05 (1) Chest pain Chest pain type: unspecified Qualified Code(s): R07.9 - Chest pain, unspecified
--- NOTE | 2019-06-18 11:30 | Discharge Summary ---
Date of Service June 18, 2019 Admission HPI Per Admitting Provider This is a 59-year-old male who has significant past medical history of HTN, HLD, depression with anxiety, osteoarthritis who presents to ED secondary to URI symptoms x4 days, overall ill feeling and left-sided chest pain. He is from [place], [place] and is up in the area for work. is at bedside. On Sunday he developed URI-like symptoms including sinus congestion, cough, ill feeling. Symptoms progressed to shortness breath with exertion, wheezing, chills, sweats, left-sided chest pain that radiates left neck. Yesterday when working he had to walk up a hill had to stop 3 times secondary to feeling short of breath. He has never felt like this in the past, except when diagnosed with pneumonia approximately 1 year ago. Cough is productive with purulent sputum, chest pain worse with coughing and deep breathing. "I have to hold my chest when I cough because it hurts." He denies documented fever, lightheadedness, shortness breath at rest, hemoptysis, emesis, abdominal pain, diarrhea, dysuria, increased urgency frequency with urination, melena, hematochezia. Patient came by EMS and did receive nebulizer treatment and ambulance. This made him feel very nauseous. at bedside states daughter has been dealing with GI virus that also had dizziness. No other sick contacts. He did not get his flu vaccine. Denies prior hx of CAD or FH of CAD. Prior to URI illness he denies having SOB with exertion or chest pain. Chest pain is constant, waxes and wanes in severity, worse with deep breathing and exertion, radiates to L neck, has been using OTC clarinex for, "skin issue," but hasn't been working. Appetite poor past 2-3 days. In ED initial EKG revealed normal sinus rhythm, no ST or T wave changes. Initial troponin WNL. CBC relatively unremarkable except for mildly diminished H&H 13.7 and 40.5, WBC 4.51, platelet 200, monocytes high at 0.94. elevated ESR 29/CRP0.80, K 3.4; otherwise CMP relatively unremarkable. CXR and CTA Chest negative for PE, consolidation, congestive changes, + cardiomegaly. He received ASA 325 while in ED along with IV reglan and benadryl due to nausea. Admission Exam Per Admitting Provider Constitutional: Ill appearing, Male, ashen color, vitals as above, NAD, sitting up in bed, answers questions approp, flat affect, Head: Normocephalic, Atraumatic Eyes: PERRL, conjunctivae normal, anicteric sclerae ENMT: external ear and nose normal, oropharynx normal Neck: trachea midline, no thyromegaly normal visual inspection Respiratory: normal respiratory effort, lungs clear to auscultation, with expiratory wheeze b/l no rales, rhonchi. Normal insp/exp effort, no accessory muscle use saturing well on room air, L sided chest pain with deep inhalation Cardiovascular: RRR, no murmur, no edema Vessels: no JVD or carotid bruit Chest: normal inspection of chest Abdomen: normal bowel sounds, soft, nontender, no hepatosplenomegaly Musculoskeletal: no cyanosis or clubbing, extremities motor strength 5/5 Skin: no rashes, warm and dry normal turgor Neurologic: PERRL, EOMI, accommodation nl, no face palsy, no dysarthria CN's II-XI intact bilaterally and moves all extremities Psychiatric: A+Ox3, euthymic affect Lymphatic: no cervical or axillary lymphadenopathy : deferred Principal Diagnosis chest pain viral syndrome Discharge Exam CONSTITUTIONAL: WNWD, vitals as above, generally well-appearing EYES: normal conjunctivae, no scleral icterus ENT: external ear and nose normal, MMM NECK: trachea midline RESPIRATORY: clear to auscultation bilaterally, no crackles, rales or wheezes, normal respiratory effort CARDIOVASCULAR: regular rate and rhythm, S1 and 2 heard without murmurs, gallops or rubs, no JVD, no peripheral edema GASTROINTESTINAL: soft, nontender, nondistended MUSCULOSKELETAL: strength 5/5 throughout, head is normocephalic and atraumatic, neck supple, normal palpation of chest wall without tenderness SKIN: warm and dry NEUROLOGIC: CN 2-12 grossly intact, normal cognition, no gross focal deficits. PSYCHIATRIC: alert cooperative and oriented to person, place and time. Discharge Data Allergies Allergy/AdvReac Type Severity Reaction Status Date / Time No Known Allergies Allergy Unverified 06/17/19 10:28 Consultations 06/17/19 11:38 ED Decision to Admit Stat 06/18/19 07:00 Consult Cardiology Routine Ordered Studies 06/17/19 09:46 CT angio chest PE protocol Stat Hospital Course (1) Viral syndrome: (2) Chest pain: 59-year-old man with risk factors for CAD including hypertension and hyperlipidemia presented with URI symptoms for 4 days and left-sided chest pain for 1 day that was associated with diaphoresis and lightheadedness. He also reported ear fullness and was found to have fluid in his right middle ear. Cardiac enzymes were trended and were negative x3. An echocardiogram was performed in the setting of persistent chest pain and was negative with no evidence of wall motion abnormalities. Cardiology was consulted to evaluate the patient for persistent chest pain and agreed that no ischemic EKG changes were present and this likely did not result represent active cardiac ischemia. No further cardiac testing was recommended. NSAIDs were recommended for symptom management. At time of discharge she was hemodynamically stable and afebrile. Review of telemetry revealed normal sinus rhythm without any alarm events or evidence of arrhythmia. Physical exam was unremarkable, and he was mentating and ambulating at baseline and tolerating p.o. He was afebrile during his hospitalization. He was oxygenating well on room air. He was discharged in stable condition with close primary care follow-up recommended. Total Time Total Time Spent Total Time Spent (In Minutes): 60 Total Time Includes: Examination of the Patient, Discharge Planning, Medication Reconciliation, Communication With Other Providers and Other (arrange outpatient followup) Discharge Plan Discharge Items Patient Disposition: Home - Self-Care Reason For Visit: CHEST PAIN, URI, FLU LIKE ILLNESS Discharge Diagnosis: chest pain Viral URI Condition on Discharge: Good Activity: Resume your previous activity Non-emergency contact: Primary Care Provider Call non-emergency contact if: you have any medication questions, your symptoms worsen, your pain is not controlled, your pain is worsening, your pain is unusual for you, your pain is concerning for you and you have a fever Diet: Regular Addtl Attending Provider Instructions: Please followup with your primary care provider within one week of discharge to ensure your symptoms have completely resolved and you are feeling well after discharge from the hospital. 06/20/2019 10:00 AM Wilver Flynn Jr., MD Family [facility], [place] It was a pleasure taking care of you! Please call if you have any questions or problems. You can reach a [facility] hospitalist on duty at [facility] 24 hours a day by calling [phone]. Take care of yourself. Dayana Dumont DO [facility] Hospitalist Pending Studies at Discharge: No Stand-Alone Forms: My [facility] [address], Work/School Release (Inpt), Smoking Cessation Medications and DC Order Prescriptions: Continued atorvastatin 10 mg Tablet 10 mg PO DAILY RF: 0 meloxicam 15 mg Tablet 15 mg PO DAILY RF: 0 lisinopril 10 mg Tablet 10 mg PO DAILY RF: 0 Claritin-D 12 Hour 5-120 mg Tablet Extended Release 12 Hr 1 tab PO Q12H RF: 0 escitalopram oxalate [Lexapro] 20 mg Tablet 20 mg PO DAILY RF: 0 Discharge Orders: Discharge Order (Routine); Ordered 06/18/19 Ordered By: Dayana Dumont Admission Data Admit Date/Time: 06/17/19 12:39 Attending Provider: Dayana Dumont Admit Provider: Dayana Dumont Primary Care Provider: PCP,NO Other Providers: Rios Nava ; Chuck Mendieta Other Interventions: Discharge Summary Assessment (RN) Last Done: 06/18/19 11:39 DC Date/Time DO NOT enter until pt leaves facility: 06/18/19 12:14
[2019-06-20 21:45] LABS: Influenza Type B <1:8 titer (<1:8)
== END 2019-06-18 12:14 | disposition home or self-care (01) ==
LOC: ED 09:29 → 2S 09:29